=== PATIENT | female | born 1965 | race Caucasian/White ===

== ENCOUNTER 2018-06-26 09:47 | Observation (INO) ==
[2018-06-26 10:41] LABS: Basophils # 0.1 10*3/uL (0.0-0.2); Basophils % 0.8 % (0.0-0.8); Eosinophils # 0.2 10*3/uL (0.0-0.87); Eosinophils % 2.2 % (0.00-10.9); Hematocrit 33.2 VOL% (35.7-47.0); Hemoglobin 10.9 GM/DL (12.0-16.0); Immature Granulocytes % 1.3 %; Immature Granulocytes Absolute 0.12 #; Lymphocytes # 1.6 10*3/uL (1.4-4.0); Mean Corpuscular HGB Conc 32.8 GM/DL (32-36); Mean Corpuscular Hemoglobin 32 PG (27-34); Mean Platelet Volume 9.8 FL (9.6-12.0); Monocytes # 0.7 10*3/uL (0.11-0.8); Monocytes % 7.6 % (1.7-12.7); Neutrophils # 6.4 10*3/uL (1.4-7.4); Neutrophils % 70.1 % (38.7-73.9); Platelet Count 263 T/CUMM (130-400); Red Blood Count 3.46 MC/CUMM (3.8-5.5); Red Cell Distribution Width 14.6 % (9.3-17.3); White Blood Count 9.1 T/CUMM (4-12)
[2018-06-26 10:46] LABS: INR 0.9; PT Patient Result 9.9 SECS; Partial Thromboplastin Time 26.2 SECS (0-40)
[2018-06-26 10:56] LABS: Albumin 3.5 G/DL (3.4-5.0); Bilirubin,Total 0.7 MG/DL (0.2-1.0); Calcium 8.4 MG/DL (8.5-10.1); Osmolality,Calculated 282.4 MOS/KG (273-304); Potassium 3.9 MMOL/L (3.5-5.1); Total Protein 5.9 G/DL (6.4-8.3)
[2018-06-26 11:05] LABS: ABG Base Excess 1.9 MMOL/L (-2.5-2.5); ABG HCO3 26.8 MMOL/L (20-26); ABG Oxygen Saturation 97.8 % (95-100); ABG PCO2 42.8 MM HG (35-48); ABG PH 7.415 (7.35-7.45); ABG PO2 103.7 MM HG (80-95); ABG TCO2 28.1 MMOL/L (23-27)
[2018-06-26 11:19] LABS: Apearance,Urine CLEAR (Clear); Bacteria,Urine Occasional /HPF (Few); Bilirubin,Urine Negative (Negative); Blood, Urine Negative (Negative); Glucose,Urine (UA) Negative (Negative); Ketones,Urine Negative (Negative); Nitrite,Urine Negative (Negative); Protein,Urine Negative; RBC,Urine 2 /HPF (0-4); Squamous Epithelial Cell,Urine Occasional /HPF (0-10); Urine Color Yellow (Yellow); Urine Specific Gravity 1.004 (1.001-1.035); Urine Urobilinogen < 2.0 EU/DL (0.2-1.0); WBC,Urine 16 /HPF (0-6)
[2018-06-26 12:11] LABS: Barbiturates Screen,Urine Negative (Negative); Benzodiazepines Screen,Urine Negative (Negative); Cannabinoid Screen,Urine Negative (Negative); Opiate Screen,Urine Negative (Negative); Phencyclidine Screen,Urine Negative (Negative)
[2018-06-26] MEDS ORDERED: ENOXAPARIN 60 MG/0.6 ML SYRINGE SUBCUT STA (12:40)
[2018-06-26] MEDS ORDERED: ONDANSETRON 4 MG/2 ML VIAL IV PRN (13:52)
[2018-06-26] MEDS ORDERED: NICOTINE 21 MG/24 HR PATCH TRANSDERM PRN (13:52)
[2018-06-26] MEDS ORDERED: cefTRIAXone 1,000 MG in SYRINGE 1 EACH IV SCH (14:00)
[2018-06-26] MEDS ORDERED: tiZANidine 4 MG TABLET PO PRN (16:08)
[2018-06-26] MEDS ORDERED: [UNRECOGNIZED DRUG - OTHER] PO PRN (16:08)
[2018-06-26] MEDS ORDERED: POTASSIUM CHLORIDE 10 MEQ TABLET PO PRN (16:08)
[2018-06-26] MEDS: SODIUM CHLORIDE 0.9% 1,000 ML IV SCH (16:46)
[2018-06-26] MEDS: DICLOFENAC SODIUM 50 MG TABLET PO SCH ×2 (17:39→21:23)
[2018-06-26] MEDS ORDERED: OSPEMIFENE 60 MG PO SCH ×2 (19:00→21:00)
[2018-06-26] MEDS ORDERED: MULTIVITAMIN (CENTRUM) TABLET PO SCH ×2 (19:00→21:00)
[2018-06-26] MEDS ORDERED: CALCIUM (CARBONATE) 600 MG TABLET PO SCH ×2 (19:00→21:00)
[2018-06-26] MEDS ORDERED: MONTELUKAST 10 MG TABLET PO SCH (21:00)
[2018-06-26] MEDS ORDERED: CYANOCOBALAMIN 1000 MCG/1 ML VIAL IM SCH (21:00)
[2018-06-26] MEDS: OMEGA 3 ACID ETHYL ESTERS 1 GM CAPSULE PO SCH (21:23)
[2018-06-26] MEDS: DILTIAZEM CD 120 MG CAPSULE PO SCH (21:23)
[2018-06-26] MEDS: VENLAFAXINE 75 MG TABLET PO SCH (21:23)
[2018-06-26] MEDS: PANTOPRAZOLE 40 MG TABLET PO SCH (21:23)
[2018-06-27] MEDS: ENOXAPARIN 60 MG/0.6 ML SYRINGE SUBCUT SCH ×2 (00:29→13:14)
[2018-06-27] MEDS: SODIUM CHLORIDE 0.9% 1,000 ML IV SCH ×2 (02:51→13:14)
[2018-06-27 05:37] LABS: Basophils # 0.1 10*3/uL (0.0-0.2); Eosinophils # 0.3 10*3/uL (0.0-0.87); Eosinophils % 3.3 % (0.00-10.9); Hematocrit 30.6 VOL% (35.7-47.0); Hemoglobin 9.6 GM/DL (12.0-16.0); Immature Granulocytes % 1.3 %; Immature Granulocytes Absolute 0.13 #; Mean Corpuscular HGB Conc 31.4 GM/DL (32-36); Mean Corpuscular Hemoglobin 30 PG (27-34); Mean Corpuscular Volume 96.2 FL (87-102); Mean Platelet Volume 9.9 FL (9.6-12.0); Monocytes # 0.8 10*3/uL (0.11-0.8); Monocytes % 7.6 % (1.7-12.7); Neutrophils # 6.7 10*3/uL (1.4-7.4); Neutrophils % 66.8 % (38.7-73.9); Platelet Count 247 T/CUMM (130-400); Red Blood Count 3.18 MC/CUMM (3.8-5.5); Red Cell Distribution Width 14.8 % (9.3-17.3)
[2018-06-27 06:01] LABS: Calcium 8.4 MG/DL (8.5-10.1); Osmolality,Calculated 289.6 MOS/KG (273-304); Potassium 4.2 MMOL/L (3.5-5.1)
[2018-06-27] MEDS ORDERED: LINACLOTIDE 145 MCG CAPSULE PO SCH (07:30)
[2018-06-27] MEDS ORDERED: FERROUS GLUCONATE 324 MG TABLET PO SCH (09:00)
[2018-06-27] MEDS ORDERED: ARIPiprazole 5 MG TABLET PO SCH (09:00)
[2018-06-27 09:46] LABS: Troponin I < 0.015 NG/ML (0.00-0.045)
[2018-06-27] MEDS: VENLAFAXINE 75 MG TABLET PO SCH (10:21)
[2018-06-27] MEDS: DICLOFENAC SODIUM 50 MG TABLET PO SCH ×2 (10:21→15:07)
[2018-06-27] MEDS: PANTOPRAZOLE 40 MG TABLET PO SCH (10:22)
[2018-06-27] MEDS: DILTIAZEM CD 120 MG CAPSULE PO SCH (10:22)
[2018-06-27] MEDS: OMEGA 3 ACID ETHYL ESTERS 1 GM CAPSULE PO SCH (10:22)
[2018-06-27 11:33] VITALS: BP 123/75
[2018-06-27] MEDS ORDERED: FOSFOMYCIN 3 GM PACK PO ONE (12:10)
[2018-06-27 12:23] LABS: Troponin I < 0.015 NG/ML (0.00-0.045)
== END 2018-06-27 13:56 | disposition home or self-care (01) ==
LOC: EDUNIT# → N.ED 09:47 → N.EDINP 09:47 → N.2W 15:32 → N.TELES 16:51
PROVIDERS: ADMIT Hospitalist; ATTEND Hospitalist